=== PATIENT | male | born 1960 | race Caucasian/White ===

== ENCOUNTER 2018-06-27 18:06 | Emergency (ER) | payer BC ==
[2018-06-27 18:22] VITALS: BP 140/75
[2018-06-27 19:08] LABS: Influenza A Molecular NEGATIVE (Negative); Influenza B Molecular NEGATIVE (Negative)
--- NOTE | 2018-06-27 19:30 | UC ---
FLU HPI - HPI Summary HPI Summary: 58-year-old female presents with onset of fever, general malaise, fatigue, body aches, mild nasal congestion, and a dry nonproductive cough this morning. States his girlfriend's son tested positive for flu this weekend. Denies ear pain, sore throat, chest pain, palpitations, shortness of breath, dental pain, nausea, vomiting, or diarrhea. - History of Current Complaint Chief Complaint: UCGeneralIllness Stated Complaint: EXPOSED TO FLU Time Seen by Provider: 06/27/18 19:25 Hx Obtained From: Patient Pain Intensity: 6 - Allergy/Home Medications Home Medications: Home Medications Apixaban* [Eliquis*] 5 mg PO BID 06/27/18 [History Confirmed 06/27/18] Atorvastatin* [Lipitor 10 MG*] 10 mg PO DAILY 06/27/18 [History Confirmed ] PMH/Surg Hx/FS Hx/Imm Hx Endocrine History: Dyslipidemia Cardiovascular History: Atrial Fibrillation - Surgical History Surgical History: None Surgery Procedure, Year, and Place: hernia repair, acls left knee, - Family History Known Family History: Positive: Non-Contributory - Social History Occupation: Employed Full-time Lives: With Family Alcohol Use: Occasionally Substance Use Type: None Smoking Status (MU): Never Smoked Tobacco Review of Systems All Other Systems Reviewed And Are Negative: Yes Constitutional: Positive: Fever, Chills, Fatigue, Other - body aches Skin: Negative: Rash Eyes: Negative: Drainage, Eye Redness ENT: Positive: Nasal Discharge. Negative: Sore Throat, Ear Ache, Sinus Congestion, Sinus Pain/Tenderness Respiratory: Positive: Cough. Negative: Shortness Of Breath Cardiovascular: Negative: Palpitations, Chest Pain Gastrointestinal: Negative: Abdominal Pain, Vomiting, Diarrhea, Nausea Genitourinary: Positive: Negative Musculoskeletal: Positive: Negative Neurological: Positive: Negative Is Patient Immunocompromised?: No Physical Exam - Summary Physical Exam Summary: GENERAL APPEARANCE: Well developed, well nourished, alert and cooperative, and appears to be in no acute distress. EYES: Conjunctiva clear. No discharge. Vision is grossly intact. EARS: External auditory canals and tympanic membranes clear, hearing grossly intact. NOSE: Mild nasal congestion. No nasal discharge. THROAT: Mild pharyngeal erythema. No tonsilar inflammation, swelling, exudate, or lesions. NECK: Neck supple, non-tender without lymphadenopathy. CARDIAC: Normal S1 and S2. No S3, S4 or murmurs. Rhythm is regular. There is no peripheral edema, cyanosis or pallor. Extremities are warm and well perfused. Capillary refill is less than 2 seconds. LUNGS: Clear to auscultation without rales, rhonchi, wheezing or diminished breath sounds. Dry, non-productive cough ABDOMEN: Positive bowel sounds. Soft, nondistended, nontender. No guarding or rebound. No masses or hepatosplenomegally. MUSKULOSKELETAL: ROM intact to all extremities. No joint erythema or tenderness. Normal muscular development. Normal gait. SKIN: Skin normal color, texture and turgor with no lesions or eruptions. Triage Information Reviewed: Yes Vital Signs: Initial Vital Signs Temp 99.2 F 06/27/18 18:16 Pulse 81 06/27/18 18:16 Resp 20 06/27/18 18:16 BP 140/75 06/27/18 18:16 Pulse Ox 99 06/27/18 18:16 Vital Signs Reviewed: Yes Diagnostics - Laboratory Diagnostic Studies Completed/Ordered: Rapid flu negative. Flu Course/Dx - Course Course Of Treatment: 58-year-old female presents with onset of fever, general malaise, fatigue, body aches, mild nasal congestion, and a dry nonproductive cough this morning. States his girlfriend's son tested positive for flu this weekend. Denies ear pain, sore throat, chest pain, palpitations, shortness of breath, dental pain, nausea, vomiting, or diarrhea. Afebrile. Mildly elevated blood pressure otherwise vital signs within normal parameters. Exam reveals an adult male in no acute distress with mild nasal congestion mild pharyngeal erythema, bilateral clear breath sounds, occasional dry nonproductive cough, and otherwise unremarkable exam. Rapid flu was negative. Recommending symptomatic treatment for viral syndrome. He is to follow-up with his primary care provider in 7 days if symptoms do not improve. Anticipatory guidance and warning symptoms were reviewed with the patient. Verbalizes understanding and agrees with plan of care. - Differential Dx/Diagnosis Differential Diagnosis/HQI/PQRI: Bronchitis, Influenza, Pneumonia, Upper Respiratory Infection Provider Diagnosis: Viral illness Discharge - Sign-Out/Discharge Documenting (check all that apply): Patient Departure All imaging exams completed and their final reports reviewed: No Studies - Discharge Plan Condition: Stable Disposition: HOME Patient Education Materials: Viral Syndrome (ED) Referrals: Daniel Gaytan MD [Primary Care Provider] - 7 Days (If no improvement in symptoms.) Additional Instructions: The rapid flu test performed in the clinic today was negative. Your history and exam are consistent with a viral upper respiratory infection. Viral infections do not respond to antibiotics and are limited to the treatment of symptoms. Viral infections typically run their course in 7-10 days. Drink plenty of fluids to avoid dehydration especially if you are running any fever. Use an over the counter decongestant such a Sudafed according to directions as needed for congestion. Use an over the counter cough syrup such as Robitussin as needed for cough. Take over the counter acetaminophen (Tylenol) or ibuprofen (Advil, Motrin) according to directions as needed for pain or fever. Use salt water gargles several times a day if you have a sore throat. You may also use Chloraseptic spray or Cepacol lonzenges according to directions which contain a numbing medication and can provide some temporary relief from your sore throat. Follow up with your primary care provider in 7 days if symptoms persist. Your blood pressure was mildly elevated in the clinic today. It is recommended that you follow up with your primary care provider within 4 weeks to have it rechecked. Seek immediate medical attention in the emergency room if you have fever greater than 100.5 F despite taking acetaminophen or ibuprofen, have chest pain , difficulty breathing, are unable to swallow, or have any worsening of symptoms. - Billing Disposition and Condition Condition: STABLE Disposition: Home - Attestation Statements Provider Attestation: Per institutional requirements, I have reviewed the chart, however, I was not consulted specifically or made aware of this patient by the midlevel provider. I did not personally evaluate, interact with , or disposition this patient.
== END 2018-06-27 19:45 | disposition home or self-care (01) ==
LOC: UCEAST 18:06
DX: B34.9 Viral infection, unspecified (principal)
CPT/HCPCS: 99201; G0463